=== PATIENT | female | born 1965 | race African-American/Black ===

== ENCOUNTER 2018-05-23 06:49 | Day surgery (SDC) | payer BC, OTHER ==
[2018-05-22 10:16] VITALS: BMI 41.1
[2018-05-23] MEDS ORDERED: BUPIVACAINE HCL/PF 2.5 MG/ML - 30 ML VIAL IJ ONE (10:28)
[2018-05-23] MEDS ORDERED: EPINEPHrine 1:1,000 1 MG/1 ML - 30ML VIAL (INJECTION) ONE (10:28)
[2018-05-23] MEDS ORDERED: PROPOFOL 20 ML ONE (10:46)
[2018-05-23] MEDS ORDERED: MIDAZOLAM HCL 2 MG/2 ML SINGLE DOSE VIAL ONE (10:46)
[2018-05-23] MEDS ORDERED: LIDOCAINE HCL/PF 2% SDV 5ML VIAL ONE (10:48)
[2018-05-23] MEDS ORDERED: ceFAZolin SODIUM 1 GM VIAL ONE (10:57)
[2018-05-23] MEDS ORDERED: KETOROLAC TROMETHAMINE 30 MG/1 ML VIAL ONE (10:57)
[2018-05-23] MEDS ORDERED: DEXAMETHASONE SOD PHOSPHATE 4 MG/1 ML VIAL ONE (10:57)
[2018-05-23] MEDS ORDERED: ONDANSETRON 4 MG/2 ML VIAL ONE (10:57)
[2018-05-23] MEDS ORDERED: BUPIVACAINE HCL/PF 0.25% (2.5MG/ML) 10 ML VIAL IJ ONE (11:25)
[2018-05-23] MEDS ORDERED: PROMETHAZINE HCL 25 MG/1 ML VIAL IVPUSH PRN (11:42)
[2018-05-23] MEDS ORDERED: ONDANSETRON 4 MG/2 ML VIAL IVPUSH PRN (11:42)
[2018-05-23] MEDS ORDERED: oxyCODONE HCL 5 MG TABLET PO PRN ×2 (11:42)
[2018-05-23] MEDS ORDERED: oxyCODONE HCL 5 MG TABLET ONE (13:01)
[2018-05-23 13:08] VITALS: TEMP 98.1
[2018-05-23 14:12] VITALS: BP 161/72; PULSE 87
--- NOTE | 2018-05-23 15:12 | OP ---
DATE OF OPERATION: 05/23/2018 PREOPERATIVE DIAGNOSIS: 1. Right knee medial and lateral meniscal tear. 2. Right knee cartilage injury. 3. Right knee synovitis. POSTOPERATIVE DIAGNOSIS: 1. Right knee medial and lateral meniscal tear. 2. Right knee cartilage injury. 3. Right knee synovitis. PROCEDURE: 1. Right knee arthroscopy, partial meniscectomy medial and lateral meniscus; CPT code 88210. 2. Right knee arthroscopy with chondroplasty and abrasionplasty; CPT code 25176. 3. Right knee arthroscopy with synovectomy; CPT code 33810. SURGEON: Dr. Nicholas Peterson TECHNICAL SUPPORT PROFESSIONAL: AGUILAR Seay ANESTHESIA: ANESTHESIOLOGIST: FINDINGS: 1. Medial meniscus [id number] horn tear central one-third. 2. Lateral meniscus posterior horn tear. 3. Synovitis, patellofemoral . 4. Central grade 2-3 cartilage injury medial femoral condyle and tibial plateau. 5. ACL and PCL intact. 6. Minor grade 1 change in lateral joint line. 7. Central grade 2-3 cartilage injury patella and patellofemoral trochlea with anterior grade 4 changes with large medial gutter and medial plicas. PROCEDURE: Informed consent was obtained. The patient came to the operating room, where the lower extremity was prepped and draped in a sterile fashion. A tourniquet was placed on the upper thigh, but not inflated. Using standard arthroscopic technique, a lateral incision and portal was made to allow for introduction of the camera into the suprapatellar bursa. This was then taken to the medial joint line, where under direct visualization, a medial incision and portal was made. Excessive synovium noted in the medial, lateral and patellofemoral and notch area was removed by an up-biter, shaver and Bovie cautery. This was found to bring in inflammatory tissue into the joint surface, a source of pain and dysfunction. Probing of the medial and lateral meniscus found tears, as described in the findings. These were removed with the up-biter and shaver and taken back to a stable rim. Grade 2 to 3 degenerative changes were treated with a chondroplasty, removing all flaking surfaces with low-setting Bovie along the periphery to prevent further flaking. Grade 4 changes, as noted, were treated with an abrasoplasty, creating a bleeding surface at the bone/cartilage interface. Aggressive debridement with shaver/lucho created bleeding surface. Micro fracture also done when indicated in findings. All areas of the knee were once again reexamined. The knee was then drained and a single suture was placed in all portals. A sterile dressing was placed and the patient was transferred to the recovery room without complication. The PA listed above was present and assisted at surgery. Their presence was absolutely medically necessary for the completion of the procedure. They helped hold the arthroscopy, pass instruments (and implants when indicated) and the procedure could not have been completed without their assistance. NICHOLAS PETERSON M.D. [id number]
--- NOTE | 2018-05-27 17:16 | PATH ---
Surgical Pathology Report Patient Name: JULITO HOUSTON Med. Rec. #: [id number] /Age/Gender: 1965 (Age: 53) / F Account: [id number] Location: [facility] Taken: 05/23/2018 Received: 05/23/2018 Reported: 05/27/2018 Physicians: Nicholas Esparza M.D. Specimen(s) Received RIGHT KNEE SHAVINGS Clinical History Derangement of right knee Final Diagnosis RIGHT KNEE SHAVINGS: FRAGMENTS OF CARTILAGE AND FIBROSYNOVIAL TISSUE WITH FIBROSIS AND DEGENERATIVE CHANGE. Electronically Signed Chino Hammond M.D. Gross Description Received in formalin, labeled "right knee shavings," is a 4.3 x 4.0 x 0.3 cm. aggregate of reaves-yellow soft tissue fragments. A industrial sales representative portion is submitted in one cassette. /05/26/201805/26/2018
== END 2018-05-23 14:30 | disposition home or self-care (01) ==
LOC: FASU 06:49
PROVIDERS: ATTEND Orthopaedic Surgery
PROC: 0SBC4ZZ Excision of Right Knee Joint, Percutaneous Endoscopic Approach (ICD-10-PCS; 2018-05-23)
PROC: 0SBC4ZZ Excision of Right Knee Joint, Percutaneous Endoscopic Approach (ICD-10-PCS; 2018-05-23)
PROC: 0SBC4ZZ Excision of Right Knee Joint, Percutaneous Endoscopic Approach (ICD-10-PCS; principal; 2018-05-23 11:06)
DX: S83.8X1A Sprain of other specified parts of right knee, initial encounter (principal); M65.861 Other synovitis and tenosynovitis, right lower leg; X58.XXXA Exposure to other specified factors, initial encounter; Y93.9 Activity, unspecified; Y92.9 Unspecified place or not applicable
CPT/HCPCS: 82962; 88304-TC; 94760